=== PATIENT | male | born 1950 | race Two or more races ===

== ENCOUNTER 2020-07-08 19:24 | Inpatient (IN) | payer SELFPAY ==
[~2020-07-08] VITALS: Ht 175.3 cm; Wt 79.4 kg
--- NOTE | 2020-07-08 19:30 | NUR ---
RECIEVED VIA AMBULANCE WITH LOW GRADE TEMP C/O GENERALIZED WEEKNESS AND LOSS OF APPITITE FOR 10 DAYS. SPEAKS SERBIAN SON IN LAW AT BEDSIDE TO TRANSLATE. HEART MONITOR APPLIED NSR, WILL CONTINUE TO MONITOR.
[2020-07-08 20:36] LABS: PLATELET COUNT 175 x10^3mcL (130-400); RED CELL DISTRIBUTION WIDTH 12.7 % (11.5-14.5)
[2020-07-08 20:37] LABS: BASOPHIL % 0 % (0-2)
[2020-07-08 20:49] LABS: ALKALINE PHOSPHATASE 65 U/L (46-116); ALT/SGPT 38 U/L (16-63); AST/SGOT 40 U/L (15-37); BILIRUBIN TOTAL 0.5 mg/dL (0.20-1.00); CALCIUM 8.5 mg/dL (8.5-10.1); CARBON DIOXIDE 27.1 mmol/L (21-32); CHLORIDE SERUM 95 mmol/L (98-107); CREATININE SERUM 1.3 mg/dL (0.7-1.3); GLUCOSE SERUM 140 mg/dL (74-106); LACTIC DEHYDROGENASE (LDH) 286 U/L (100-190); SODIUM SERUM 132 mmol/L (136-145); TOTAL PROTEIN, SERUM 7.6 g/dL (6.4-8.2)
[2020-07-08 20:59] LABS: C REACTIVE PROTEIN 12.8 mg/dL (<=0.9); POTASSIUM SERUM 2.8 mmol/L (3.5-5.1)
[2020-07-08 21:09] LABS: UA SPECIFIC GRAVITY 1.025 (1.005-1.035); microscopic required? YES; urine erythrocyte TRACE (NEGATIVE)
--- NOTE | 2020-07-08 21:45 | NUR ---
NOTES CONTINUED BEFORE LEAVING ROOM.
--- NOTE | 2020-07-08 21:45 | NUR ---
PT WAS FOUND DOWN ON FLOOR ASFAMILY MEMBER STEPPED OUT OF ROOM TO RECIEVE CALL. THREE ASSISTED BACK TO BED FOUND ON BACK NO INJURY OR BRUISING SEEN AT THIS TIME. DENIES PAIN OR DISCOMFORT VITAL SIGNS STABLE . CHARGE NURSE HELPED ASSIST PATIENT TO BED. WILL CONTINUE TO MONITOR.CALL LIGHT WAS IN REACH BED WAS IN LOWER POSTION PT. WAS TOLD TO CALL FOR ASSISTANCE, FAMILY WAS AWARE TO NOTIFY NURSE BEFOR
--- NOTE | 2020-07-09 00:34 | NUR ---
PT AND FATHER PROVIDED WITH D/C INSTRUCTIONS WITH RX FOR ZOFRAN. PT AND FATHER GAVE UNDERSTANDING. NO ACUTE DISTRESS NOTED, PT A&OX4,BEHAVING APPROPRIATELY FOR AGE. AMBULATED OUT WITH STEADY GAIT WITH FATHER AT PT SIDE.
[2020-07-09] MEDS ORDERED: VIS50 PO (00:54)
[2020-07-09] MEDS ORDERED: ASPIRIN ADULT L81 M3 (00:55)
[2020-07-09] MEDS ORDERED: PLAVIX75 M1 PO (00:55)
[2020-07-09] MEDS ORDERED: ZOCOR10 MG (00:55)
[2020-07-09 01:11] LABS: MAGNESIUM 2.2 mg/dL (1.8-2.4); PHOSPHOROUS 3.5 mg/dL (2.5-4.9)
--- NOTE | 2020-07-09 01:12 | NUR ---
TRANSFERRED TO [id number] WITH COVID R/O AND PNUMONIA REPORT CALLED TO NATHEN WALTER TRANSPORTED WITH ALL BELONINGS
--- NOTE | 2020-07-09 01:30 | NUR ---
RECEIVED PT FROM ED NURSE. PT IS AAOX4, SPEAKS POLISH, DENIES HEADACHE/NAUSEA/DIZZINESS. PT IS TELE #23, NSR, DENIES CHEST PAIN. PULSES ARE EQUAL BILATERALLY, NO EDEMA NOTED. PT HAS BILATERALLY DIMINISHED BASES, ON 3L NC, DENIES SOB. PATIENT HAS CONGESTED COUGH. ABDOMEN IS SOFT AND ROUND, NO PAIN UPON PALPATION, NORMOACTIVE X4 QUADRANTS, LAST BM 07/06 STATED BY PATIENT. PT VOIDS FREELY, URINAL AT BEDSIDE. PATIENT REPORTS POOR APPETTITE, GENERALIZED WEAKNESS. SKIN IS DRY AND INTACT, NO LESIONS NOTED. PATIENT HAS IV TO LAC 18G AND RH 22G, SITES ARE INTACT, NO REDNESS OR SWELLING NOTED. PT IS CALM AND COOPERATIVE. ALL SAFETY MEASURES IN PLACE. BED IN LOWEST POSITION, CALL LIGHT WITHIN REACH. WILL CONTINUE TO MONITOR.
[2020-07-09 02:55] VITALS: BP 140/77
[2020-07-09 03:54] LABS: BASOPHIL % 0.6 % (0-2); PLATELET COUNT 189 x10^3mcL (130-400); RED CELL DISTRIBUTION WIDTH 12.3 % (11.5-14.5)
[2020-07-09 04:21] LABS: CALCIUM 8.6 mg/dL (8.5-10.1); CARBON DIOXIDE 28.1 mmol/L (21-32); CHLORIDE SERUM 95 mmol/L (98-107); CREATININE SERUM 1.2 mg/dL (0.7-1.3); GLUCOSE SERUM 110 mg/dL (74-106); POTASSIUM SERUM 3.2 mmol/L (3.5-5.1); SODIUM SERUM 135 mmol/L (136-145)
[2020-07-09 06:16] VITALS: BP 136/72
--- NOTE | 2020-07-09 07:02 | NUR ---
PATIENT RESTING INTERMITTENTLY WITH EYES CLOSED. NO ACUTE ISTRESS NOTED AT THIS TIME. PATIENT REMAINS ON 3L NC, DEMONSTRATES NO S/S OF SOB. AZITHROMAX RUNNING AT THIS TIME ON LAC 20G IV SITE. PHARMACY CONTACTED REGARDING NEED OF POTASSIUM AND LIDOCAINE MEDICATION. PER PHARMACY MEDICATION TIME WILL BE CHANGED TO 0800. PATIENT DEMONSTRATES CONGESTED/PRODUCTIVE COUGH. ALL SAFETY MEASURES IN PLACE. BED IN LOWEST POSITION, CALL LIGHT WITHIN REACH. WILL ENDORSE TO DAYSHIFT NURSE.
[2020-07-09 08:32] VITALS: BP 132/74
--- NOTE | 2020-07-09 09:10 | NUR ---
SEEN IN BED AAOX4. NO RESP DISTRESS OR SOB NOTED, ON O2 3LPM N/C, O2SAT 92%. NOTED WITH OCCATIONAL DRY COUGH. DIMINISHED LUNG SOUND TO BASES. GEN BODY WEAKNESS. ABLE TO FINISH MILK, HAD SOME CREAM OF WHEAT, REFUSED TO EAT THE REST. VOIDS NOTED YELLOW URINE ON URINAL AT BEDSIDE. K 3.2, K RIDER INFUSING WELL TO RIGHT HAND IV SITE. S/L TO LAC INTACT AND PATENT. CALL LIGHT PLACED WITHIN EASY REACH, SIDERAILS UP X2.
--- NOTE | 2020-07-09 11:29 | NUR ---
TM=136, REFUSED 3 UNITS REGULAR INSULIN SLIDING SCALE COVERAGE. PHYSICAL THERAPIST AT BEDSIDE. NO ANY DISTRESS NOTED. O2 DECREASED TO 2LPM N/C, O2SAT 92%-93%.
[2020-07-09 11:41] VITALS: BP 123/74
--- NOTE | 2020-07-09 13:53 | NUR ---
Discount pharmacy card and list to low cost medical clinics given to patient.
--- NOTE | 2020-07-09 15:21 | NUR ---
RESTING WITH EYES CLOSED. DOCTOR JIMENEZ MADE AWARE OF TODAY'S CHEST XRAY.
[2020-07-09 17:05] VITALS: BP 130/72
--- NOTE | 2020-07-09 18:51 | NUR ---
NO ANY DISTRESS THROUGHOUT SHIFT. DENIES PAIN. AFEBRILE AT THIS TIME. ALL SCHEDULED MEDS GIVEN. STATED VOIDS FREELY.
--- NOTE | 2020-07-09 21:00 | NUR ---
RECIEVED PATIENT FROM DAY SHIFT.PT RESTING IN BED. RR EVEN AND UNLABORED. PT ON 2L NC. BED IN SEMI FOWLERS POSITION. NSR TELE 23. NO S/SX ADN. BED LOCKED AND LOWERED. URINAL AT BEDSIDE. CALL LIGHT WITHIN REACH. WILL CONTINUE WITH PLAN OF CARE.
[2020-07-09 21:06] VITALS: BP 103/71
--- NOTE | 2020-07-09 23:01 | NUR ---
I HAVE REVIEWED THE DATA COLLECTION BY ORIENTEE (NAME): AREN MARIE ENTERED ON (DATE/TIME): 07/09/20 2585H I CONCUR WITH THE DATA AND ANY EXCEPTIONS OR COMMENTS ARE LISTED BELOW:
--- NOTE | 2020-07-10 01:15 | NUR ---
PT RESTING IN BED WATCHING TV. RR EVEN AND UNLABORED. ON 2L NC. O2 SAT 94%. NO S/SX OF ADN. BED LOCKED AND LOWERED. FALL PRECAUTIONS IN PLACE. CALL LIGHT WITHIN REACH. WILL CONTINUE TO MONITOR.
[2020-07-10 05:40] VITALS: BP 142/76
--- NOTE | 2020-07-10 06:39 | NUR ---
PT RESTING IN BED. A&O X4. RR EVEN AND UNLABORED. NO S/SX ADN. FALL PRECAUTIONS IN PLACE. BED LOCKED AND LOWERED. RH & LAC IV CDI AND PATENT. ALL NEEDS AND CONCERNS MET DURING SHIFT. CALL LIGHT WITHIN REACH. WILL ENDORSE TO DAY SHIFT NURSE.
[2020-07-10 06:58] LABS: BASOPHIL % 0.3 % (0-2); PLATELET COUNT 215 x10^3mcL (130-400); RED CELL DISTRIBUTION WIDTH 12.8 % (11.5-14.5)
[2020-07-10 07:21] LABS: CALCIUM 8.7 mg/dL (8.5-10.1); CARBON DIOXIDE 31.2 mmol/L (21-32); CHLORIDE SERUM 97 mmol/L (98-107); CREATININE SERUM 1.1 mg/dL (0.7-1.3); GLUCOSE SERUM 133 mg/dL (74-106); MAGNESIUM 2.2 mg/dL (1.8-2.4); PHOSPHOROUS 2.8 mg/dL (2.5-4.9); POTASSIUM SERUM 3.6 mmol/L (3.5-5.1); SODIUM SERUM 135 mmol/L (136-145)
--- NOTE | 2020-07-10 08:40 | NUR ---
SEEN SITTING UP IN BED ON HIGH PRATT POSITION HAVING BREAKFAST. AAOX3. NO RESP DISTRESS NOTED, ON 2LPM N/C O2SAT 93%. NOTED WITH OCCATIONAL DRY COUGH. DIMINISHED LUNG SOUND. POOR APPETITE, ABLE TO FINISH GLUCERNA AND SOME MUFFIN BREAD, REFUSED THE REST OF BREAKFAST. AM SCHEDULED MEDS GIVEN. S/L TO RT WRIST AND LAC INTACT/PATENT. NOTED YELLOW URINE ON URINAL AT BEDSIDE, EMPTIED 200ML URINE. PLAN OF CARE INFORMED. CALL LIGHT PLACED WITHIN EASY REACH, SIDERAIL S UP X2. ON DROPLET/CONTACT ISOLATION FOR PENDING PCR.
[2020-07-10 08:44] VITALS: BP 131/75
--- NOTE | 2020-07-10 09:00 | NUR ---
REFUSED FLU SHOT AND PNEUMOCOCCAL SHOT. PATIENT HAD FEVER THIS AM 102.2.
--- NOTE | 2020-07-10 10:00 | NUR ---
PATIENT CALLED STATED HE IS WET. NOTED INCONTINENCE URINE, PAULINA CARE PROVIDED, NEW LICHA APPLIED, NEW GOWN AND BED LINENS CHANGED. URINAL PROVIDED WITHIN EASY REACH, PATIENT STATED IT'S DIFFULTY TO USE IT. DENIES PAIN. CALL LIGHT PLACED WITHIN EASY REACH. SIDERAILS UP X2.
--- NOTE | 2020-07-10 10:30 | NUR ---
PATIENT IS POSITIVE FOR COVID-19(PCR). CLINICAL SAFETY MANAGER AND DOCTOR COLE MADE AWARE. REMAINS ON DROPLET/CONTACT ISOLATION.
--- NOTE | 2020-07-10 11:27 | NUR ---
DOCTOR FUENTES AND MEDICAL TEAM AT BEDSIDE FOR AM ROUND.
[2020-07-10 11:48] VITALS: BP 110/70
--- NOTE | 2020-07-10 13:00 | NUR ---
PATIENT CALLED STATED WANTED TO GO TO THE BATHROOM. ASSISTED TO BATHROOMM. HAD SOFT BM. ASSISTED TO SIT IN CHAIR. CALL LIGHT PLACED WITHIN EASY REACH AND INSTRUCTED PATIENT TO CALL WHEN READY TO GET BACKT TO BED.
--- NOTE | 2020-07-10 15:00 | NUR ---
ASSISTED BACK TO BED. NO ANY DISTRESS NOTED.
[2020-07-10 15:35] VITALS: BP 129/69
--- NOTE | 2020-07-10 15:40 | NUR ---
Initial Nutrition Assessment: 214B LUANA SANCHEZ 69M HR Nursing trigger: Poor PO > 3 days Dx: Fever, PUI, hypokalemia PMHx: Anxiety, DM, HTN PSHx: Cardiac stent placement Labs: (07/10) HCT 38L, Na 135L, Cl 97L, BG 133H, (07/09) 13.9H, (07/08) A1C 7.9H, Ferritin 628.1H, AST 40H, Albumin 3L Meds: Zithromax, Plavix, Lipitor, Aspirin, Zosyn, Tylenol Diet: CCHO diet PO intake since admission: (07/09) B: 20%, D: 50% Ht: 175.26cm/69in Wt: 79.379kg/175lbs BMI: 25.8 Bed scale: not accessible IBW: 72.73kg/160lbs %IBW: 109.15% UBW: unknown Age: 69 Food Allergies: unknown Edema: none noted Last BM: 07/06 Skin: skin intact Mynor: 19 Per H and P (07/08), This is a 69 yo male with a PMHx of anxiety, DM HTN, CAD with stent placement who was BIBA to ED for generalized weakness. Patient speaks Kiswahili so most of the history was given by son. Since Jun 26-, patient has had body aches, chills, dry cough. Patient has also not been eating or drinking well for about a week. However, today at around 7 pm, patient was so weak that he was unable to move. The son states that patient seemed lethargic and complained of dizziness. Patient's son also states that he was the first person to show "COVID like symptoms," and that the rest of the household began to exhibit some COVID like symptoms and just got tested today. He has also not received his flu shot. Otherwise, patient denies any known sick contacts, diarrhea, nausea, vomiting, chest pain, sore throat. Endorses Headaches, dry cough, body aches and chills Pt was admitted with dx: general weakness, hypokalemia, hypochloremia, vasomotornephropathy, h/o DM, DVT RD Note (07/10/2020) A swallow evaluation was ordered d/t possible aspiration PNA. Pt was in isolation d/t COVID PUI. RN reported poor appetite, and pt had 20-50% intake on 07/09. Contacted pt's son-in-law and asked about pt. Per pt's son-in-law, pt did not follow any food restrictions at home and he ate everything normally with no chewing/swallowing difficulty. A week before admission, pt's appetite started to decline. Suggested encouraging pt to increase PO intake to family member, and family member acknowledged. Per RN, pt did not have breakfast today, but pt appeared to like glucerna. No GI distress was observed today. Problem with: N/V/D/C: none per RN Problems with: Chewing: Swallowing: none per RN and pt's son-in-law Current appetite: poor per RN Recent wt change: unknown %wt change: unknown Vitamin/Supplement use: unknown Special diet at home: regular diet Physical activity: unknown Nutrition education given (specify specific nutrition education and handout given): not given at this time d/t pt was Kiswahili Speaking. Food-drug interactions? Education given? n/a Estimated Nutritional Needs Based on ideal body weight (73kg) Energy: 7670-7963 kcal/day (25-30 kcal/kg for geriatric maintenance) Protein: 73-87 g/day (1-1.2 g/kg for geriatric maintenance) Fluid: 5050-5448 mL/day (1 mL/kcal) Nutrition Diagnosis: 1. Inadequate energy and protein intake r/t decreased appetite a/e/b pt's family member reported appetite declining and low PO intake since admission. 2. Altered Nutrition related labs r/t endocrine dysfunction a/e/b pt elevated BG 133on 07/10, and A1C 7.9 on 07/08. Intervention 1. Continue CCHO diet as tolerate 2. Recommend Glucerna TID to provide additional 660kcal and 30g protein. Monitor/Evaluate Goal: PO intake at least 75% of estimated needs Monitor: PO intake, Labs, GI function, ONS intake, Body weight F/U in 2-3 days as high risk 07/12-
--- NOTE | 2020-07-10 15:40 | NUR ---
1. Continue CCHO diet as tolerate 2. Recommend Glucerna TID to provide additional 660kcal and 30g protein.
--- NOTE | 2020-07-10 16:19 | NUR ---
RECEIVED A CALL FROM PATIENT'S SON IN LAW [facility] STATED THAT DOCTOR CALLED HIM AND INFORMED ABOUT CONVALESCENT PLASMA TRANSFUSION. CONSENT FOR BLOOD TRANSFUSION OBTAINED VIA PHONE VERIFIED BY JOSE ANGEL BALDWIN.
--- NOTE | 2020-07-10 16:30 | NUR ---
STATED IV SITE TO RIGHT WRIST HURTING, NO SWELLING OR ERYTHEMA TO SITE, IV CATHETER REMOVED, DRSG APPLIED. NEW IV CATHETER#22 INSERTED TO LFA WITH GOOD BLD RETURNED AND FLUSHED WELL. IVPB REMESIVIR STARTED, NO ADVERSE REACTION NOTED. DENIES PAIN.
--- NOTE | 2020-07-10 18:21 | NUR ---
SITTING UP IN BED HAVING DINNER. NO ASPIRATION NOTED. REMAINS ON O2 2LPM N/C, O2SAT 92%-95%. DENIES PAIN. VOIDS, HAD BM X1 TODAY. S/L TO LAC AND LFA INTACT AND PATENT.
--- NOTE | 2020-07-10 19:35 | NUR ---
RECIEVED PT DAY SHIFT NURSE. PT RESTING IN BED. RR EVEN AND UNLABORED. ON 2L NC. NO S/SX ADN. NSR ON TELE #23. DENIES ANY CHEST PAIN. FALL PRECAUTIONS IN PLACE. CALL LIGHT WITHIN REACH. WILL CONTINUE WITH PLAN OF CARE.
[2020-07-10 20:37] VITALS: BP 133/69
--- NOTE | 2020-07-10 23:20 | NUR ---
20G IV TO LEFT AC APPEARS TO BE INFILTRATED. INFUSION STOPPED. SLIGH SWELLING NOTED TO LEFT AC AREA. IV REMOVED, INTACT. FLUSHED IV TO LEFT FOREARM, FLUSHED WELL. TRANSFERRED INFUSION TO LEFT FOREARM IV. VITAL SIGNS TAKEN, TEMP 98.8F, BP 135/72, CO 76, RR 20, O2 SAT 96%.
--- NOTE | 2020-07-10 23:21 | NUR ---
STARTED PT ON FFP 1 UNIT. NO S/SX OF OF ACUTE REACTION NOTED. VS WNL. WILL CONTINUE TO MONITOR.
--- NOTE | 2020-07-10 23:49 | NUR ---
PT IV INFILTRATED DURING ADMINISTRATION OF FFP. MOVED TO PATENT IV SITE AND CONTIUE ADMINISTRATION. NOTIFIED DR ANDINO @ 4214. SHE ADVISED TO CONTINUE WITH INFUSION.
--- NOTE | 2020-07-11 04:13 | NUR ---
I HAVE REVIEWED THE DATA COLLECTION BY ORIENTEE (NAME): AREN MARIE ENTERED ON (DATE/TIME):2340H 07/10/20 I CONCUR WITH THE DATA AND ANY EXCEPTIONS OR COMMENTS ARE LISTED BELOW:
[2020-07-11 06:07] VITALS: BP 126/47; BP 136/75
[2020-07-11 06:50] LABS: BASOPHIL % 0.2 % (0-2); PLATELET COUNT 222 x10^3mcL (130-400); RED CELL DISTRIBUTION WIDTH 12.7 % (11.5-14.5)
[2020-07-11 07:13] LABS: CARBON DIOXIDE 30.6 mmol/L (21-32); CHLORIDE SERUM 99 mmol/L (98-107); CREATININE SERUM 1.1 mg/dL (0.7-1.3); GLUCOSE SERUM 88 mg/dL (74-106); MAGNESIUM 2.3 mg/dL (1.8-2.4); PHOSPHOROUS 3.7 mg/dL (2.5-4.9); POTASSIUM SERUM 3.3 mmol/L (3.5-5.1); SODIUM SERUM 137 mmol/L (136-145)
--- NOTE | 2020-07-11 07:21 | NUR ---
PT SLEEPING IN BED. RR EVEN AND UNLABORED. NO S/SX OF ADN. BED LOCKED AND LOWERED. CALL LIGHT WITHIN REACH. WILL ENDORSE TO DAY SHIFT NURSE.
[2020-07-11 07:28] LABS: BILIRUBIN DIRECT 0.27 mg/dL (0.0-0.2); BILIRUBIN TOTAL 0.59 mg/dL (0.20-1.00); TOTAL PROTEIN, SERUM 7.2 g/dL (6.4-8.2)
[2020-07-11 07:29] LABS: ALBUMIN 2.8 g/dL (3.4-5.0)
[2020-07-11 08:05] VITALS: BP 127/71
--- NOTE | 2020-07-11 08:31 | NUR ---
AT 0805 - RECEIVED PATIENT FROM NIGHT NURSE. AWAKE, ALERT AND APPEARS ORIENTED. SITTING UP IN BED EATING BREAKFAST. VSS. CURRENTLY AFEBRILE. O2 SAT 98% ON 2L VIA NC. DRY COUGH. MONITOR SHOWING SINUS RHYTHM; RATE 60'S. ON DROPLET ISOLATION FOR COVID-19.
[2020-07-11 09:37] VITALS: BP 122/68
--- NOTE | 2020-07-11 12:23 | NUR ---
RETURNED CALL TO PATIENT'S SON-IN-LAW, LORENZO. UPDATED ON PATIENT CONDITION AND CURRENT PLAN OF CARE. PATIENT RESTING QUIETLY. GIVEN 6 UNITS REGULAR INSULIN PER SLIDING SCALE FOR BLOOD GLUCOSE LEVEL OF 211.
[2020-07-11 12:32] VITALS: BP 124/71
--- NOTE | 2020-07-11 13:10 | NUR ---
PT WAS SEEN FOR DYSPHAGIA. PT WAS ABLE TO SAFELY SWALLOW REGULAR DIET WITH THIN LIQUID. RECOMMENDATION REGULAR DIET WITH THIN LQUID.
--- NOTE | 2020-07-11 16:30 | NUR ---
RECEIVED CALL FROM PATIENT'S SON-IN-LAW, LORENZO. UPDATED ON PATIENT CONDITION.
[2020-07-11 17:32] VITALS: BP 121/68
--- NOTE | 2020-07-11 19:30 | NUR ---
PATIENT SLEPT THIS AFTERNOON. NOW AWAKE, ALERT. TOLERATING DIET PO. IMPROVED APPETITE THIS PM. VSS AFEBRILE. TRECEIVED TODAY'S DOSE OF REMDESEVIR. CARE ENDORSED TO NIGHT NURSE.
--- NOTE | 2020-07-11 19:35 | NUR ---
RECEIVED PT FROM AM NURSE AT THIS TIME. AA/O x 4, [place] AND [place] SPEAKING. TELE MONITOR #23, SR, HR 65 BPM. DENIES CHEST PAIN/ CHEST DISCOMFORT. PULSES PALPABLE, NO EDEMA, LUNG SOUNDS DIMINISHED, ON O2 2 LPM VIA NC. DENIES COUGH AT THIS TIME. ACTIVE BS X 4 QUADS, ABD SOFT AND NON TENDER. DENIES N/V/D. VOIDS, GENERALIZED WEAKNESS, PT DONE THIS AM PER AM NURSE. SKIN INTACT, DENIES PAIN. IV TO LFA INTACT, NO ERYTHEMA/ NO INFILTRATION. IV REMDESEVIR STILL RUNNING AT THIS TIME. WILL SL WHEN COMPLETED. IV INFUSING WELL. NO ACUTE DISTRESS AT THIS TIME. CALL BUTTON WITHIN REACH, WILL CONTINUE TO MONITOR.
[2020-07-11 21:41] VITALS: BP 103/73
--- NOTE | 2020-07-12 01:25 | NUR ---
PT IN BED RESTING WITH EYES CLOSED, BUT EASILY AROUSABLE. RESPIRATIONS E/U ON O2 AT 2 LPM VIA NC. RISE AND FALL OF CHEST OBSERVED. NO SIGNS OF PAIN. NO ACUTE DISTRESS AT THIS TIME. CALL BUTTON WITHIN REACH, WILL CONTINUE TO MONITOR.
[2020-07-12 05:56] VITALS: BP 121/65
--- NOTE | 2020-07-12 06:39 | NUR ---
PT SLEPT IN INTERVALS THROUGHOUT THE NIGHT, BUT EASILY AROUSABLE. RESPIRATIONS E/U ON 2 LPM OF O2 VIA NC. DENIES SOB/ DENIES PAIN. BLOOD SUGAR 272, INSULIN COVERAGE GIVEN PER SLIDING SCALE. NO ACUTE CHANGES OVER NIGHT. CALL BUTTON WITHIN REACH, WILL ENDORSE CARE TO AM SHIFT.
[2020-07-12 07:21] LABS: BASOPHIL % 0.1 % (0-2); PLATELET COUNT 242 x10^3mcL (130-400); RED CELL DISTRIBUTION WIDTH 12.6 % (11.5-14.5)
--- NOTE | 2020-07-12 07:24 | NUR ---
RECEIVED PATIENT FROM NIGHT NURSE. MONITOR SHOWING SINUS BRADYCARDIA; RATE 56. O2 SAT 95% ON 2L VIA NC.
[2020-07-12 08:28] VITALS: BP 121/65
[2020-07-12 08:36] LABS: BILIRUBIN DIRECT 0.2 mg/dL (0.0-0.2); BILIRUBIN TOTAL 0.4 mg/dL (0.20-1.00); TOTAL PROTEIN, SERUM 7.8 g/dL (6.4-8.2)
[2020-07-12 08:38] LABS: CALCIUM 9.4 mg/dL (8.5-10.1); CARBON DIOXIDE 28.9 mmol/L (21-32); CHLORIDE SERUM 102 mmol/L (98-107); CREATININE SERUM 1.1 mg/dL (0.7-1.3); GLUCOSE SERUM 277 mg/dL (74-106); MAGNESIUM 2.7 mg/dL (1.8-2.4); POTASSIUM SERUM 3.9 mmol/L (3.5-5.1); SODIUM SERUM 140 mmol/L (136-145)
[2020-07-12 08:44] LABS: ALBUMIN 2.6 g/dL (3.4-5.0)
--- NOTE | 2020-07-12 09:47 | NUR ---
AT 0835 - PATIENT IS AWAKE, ALERT AND ORIENTED. SITTING UP IN BED EATING BREAKFAST. SPEAKING WITH FAMILY ON HIS CELL PHONE.
--- NOTE | 2020-07-12 11:30 | NUR ---
MAKING ROUNDS THIS MORNING AND TOLD PATIENT'S AIC RESULTS 7.9 AND ONLY ON SS INSULIN.PRINTED AND SHOWED THE PAST 3 DAYS OF HIS FINGER STICK GLUCOSE TEST RESULTS FROM 07/09/2020 TO 07/11/2020.
[2020-07-12 11:58] VITALS: BP 121/61
--- NOTE | 2020-07-12 13:12 | NUR ---
AT 1230 - PATIENT AMBULATED AROUND ROOM USING WALKER. PATIENT HAS GOOD ACTIVITY TOLERANCE BUT NEEDS ASSISTANCE WELL WALKER; APPEARS WEAK AND UNSTEADY. NOW SITTING IN CHAIR FOR LUNCH.
--- NOTE | 2020-07-12 13:56 | NUR ---
PATIENT SAID HE WANTS TO REMAIN SITTING IN CHAIR. INSTRUCTED TO CALL FOR NURSE AND NOT TO ATTEMPT GETTING OUT OF CHAIR ALONE. CALL LIGHT WITHIN REACH.
--- NOTE | 2020-07-12 14:29 | NUR ---
Follow up Nutrition Assessment: 214B LUANA SANCHEZ 69M HR Dx: Fever, PUI, hypokalemia PMHx: Anxiety, DM, HTN PSHx: Cardiac stent placement Labs: Glucose: 277H, BUN: 28H, A1C: 7.9H (07/08), H/H: 12/35L Meds: Zithromax, Plavix, Lipitor, Aspirin, Zosyn, Tylenol, cepacol lozenge PRN, colace BID/PRN, Humulin PRN, Lipitor, norco PRN Diet: CCHO diet PO intake since admission: 50% x 5 meals -PO intake seems to be improving Wt: 79.379kg/175lbs BMI: 25.8 Edema: none Last BM: 07/10/20 Skin: skin intact Mynor: 20 Per H and P (07/08), This is a 69 yo male with a PMHx of anxiety, DM HTN, CAD with stent placement who was BIBA to ED for generalized weakness. Patient speaks Irish so most of the history was given by son. Since Jun 26-, patient has had body aches, chills, dry cough. Patient has also not been eating or drinking well for about a week. However, today at around 7 pm, patient was so weak that he was unable to move. The son states that patient seemed lethargic and complained of dizziness. Patient's son also states that he was the first person to show "COVID like symptoms," and that the rest of the household began to exhibit some COVID like symptoms and just got tested today. He has also not received his flu shot. Otherwise, patient denies any known sick contacts, diarrhea, nausea, vomiting, chest pain, sore throat. Endorses Headaches, dry cough, body aches and chills Pt was admitted with dx: general weakness, hypokalemia, hypochloremia, vasomotornephropathy, h/o DM, DVT RD Note (07/10/2020) A swallow evaluation was ordered d/t possible aspiration PNA. Pt was in isolation d/t COVID PUI. RN reported poor appetite, and pt had 20-50% intake on 07/09. Contacted pt's son-in-law and asked about pt. Per pt's son-in-law, pt did not follow any food restrictions at home and he ate everything normally with no chewing/swallowing difficulty. A week before admission, pt's appetite started to decline. Suggested encouraging pt to increase PO intake to family member, and family member acknowledged. Per RN, pt did not have breakfast today, but pt appeared to like glucerna. No GI distress was observed today. RD note (07-12-2020): Per MD progress note, COVID-19 PCR came back positive. Pt had a fever this morning of 101.1 around midnight. Pt was started on remdisivir, pt received plasma. Pt on 2L cannula oxygen. Per pt's nurse, pt is eating well only if he receives salt and pepper on his food. Observed pt sitting in a chair eating lunch independently at time of visit. Pt is also eating snacks that his family brings for him. Do not recommend for pt to be on cardiac diet due to pt eating well, wants salt on food to eat, pt's age (69 years) and pt had poor PO intake at admission. Estimated Nutritional Needs Based on ideal body weight (73kg), *modified Energy: 2190- 2555 kcal/day (30-35 kcal/kg for infection) Protein: 73-95 g/day (1-1.3 g/kg for infection) Fluid: 2190- 2555 mL/day (1 mL/kcal) Nutrition Diagnosis: 1. Inadequate energy and protein intake r/t decreased appetite a/e/b pt's family member reported appetite declining and low PO intake since admission. (ongoing) 2. Altered Nutrition related labs r/t endocrine dysfunction a/e/b pt has elevated BG and A1C 7.9 on 07/08 (ongoing) 3. Increased nutrient needs (protein, energy) related to infection, fever as evidenced by + COVID-19 PCR test, + fever Intervention 1. Continue CCHO diet as tolerated 2. Continue Glucerna TID to provide additional 660kcal and 30g protein. Monitor/Evaluate Goal: PO intake at least 75% of estimated needs (met, ongoing) Monitor: PO intake, Labs, GI function, ONS intake, Body weight F/U in 3-5 days as moderate risk 07/15-
--- NOTE | 2020-07-12 14:30 | NUR ---
Intervention 1. Continue CCHO diet as tolerated 2. Continue Glucerna TID to provide additional 660kcal and 30g protein.
--- NOTE | 2020-07-12 16:20 | NUR ---
BLOOD GLUCOSE 494. REPEAT 442. DR JEFFERY NOTIFIED. GIVE INSULIN PER SLIDING SCALE NOW AND DR WILL ORDER LONG-ACTING INSULIN FOR TONIGHT.
[2020-07-12 16:25] VITALS: BP 113/57
--- NOTE | 2020-07-12 18:39 | NUR ---
AWAKE, ALERT AND ORIETNED. HAS RECEIVED TODAY'S DOSE OF REMDESEVIR. PATIENT STIL SITTING IN CHAIR BY CHOICE. RESPIRATIONS REGULAR. WILL ENDORSE CARE TO NIGHT NURSE.
--- NOTE | 2020-07-12 19:35 | NUR ---
RECEIVED PT FROM AM NURSE, PT IS AA/O X 4, ABLE TO MAKE NEEDS KNOWN, DENIES HEADACHE/ DENIES DIZZINESS. TELE MONITOR #23 NSR. DENIES CHEST PAIN/ CHEST PRESSURE. PULSES PALPABLE NO EDEMA. RESPIRATIONS E/U ON 2 LPM OF O2 VIA NC, DENIES SOB. SPO2 94%. VOIDS USING URINAL, GENERALIZED BODY PAIN, SKIN INTACT, DENIES PAIN. IV TO LFA INTACT, SL, FLUSHING WELL. NO ERYTHEMA, NO INFILTRATION. DROPLET PRECAUTIONS IN PLACE FOR POSITIVE COVID PCR. ALL NEEDS MET. CALL BUTTON WITHIN REACH, WILL CONTINUE TO MONITOR.
[2020-07-12 21:08] VITALS: BP 122/59
--- NOTE | 2020-07-13 00:29 | NUR ---
PT IN BED RESTING WITH EYES CLOSED, BUT EASILY AROUSABLE. RESPIRATIONS E/U ON 2 LPM OF O2 VIA NC. TELE MONITOR SHOWING SINUS ARAM, 48-64 BPM. DENIES CHEST PAIN. NO ACUTE DISTRESS AT THIS TIME. FALL PRECAUTIONS IN PLACE. CALL BUTTON WITHIN REACH, WILL CONTINUE TO MONITOR.
[2020-07-13 05:39] VITALS: BP 147/73
--- NOTE | 2020-07-13 07:06 | NUR ---
PT SLEPT IN INTERVALS THROUGHOUT THE NIGHT BUT EASILY AROUSABLE. NO ACUTE CHANGES DURING THE NIGHT. BLOOD SUGAR 331, INSULIN COVERAGE GIVEN PER SLIDING SCALE. CARE WILL BE ENDORSED TO AM NURSE.
--- NOTE | 2020-07-13 07:20 | NUR ---
REC'VD PT FROM NIGHT RN. PT RESTING IN BED WITH EYES CLOSED. RES E/U, NO RESPIRATORY DISTRESS NOTED. TELE MONITOR 23 SHOWING SB AND O2 SATURATING 97% ON 2 L NC.
[2020-07-13 07:23] LABS: BILIRUBIN DIRECT 0.15 mg/dL (0.0-0.2); BILIRUBIN TOTAL 0.3 mg/dL (0.20-1.00); TOTAL PROTEIN, SERUM 7.2 g/dL (6.4-8.2)
[2020-07-13 07:24] LABS: ALBUMIN 2.5 g/dL (3.4-5.0)
[2020-07-13 09:19] VITALS: BP 140/70
[2020-07-13 10:29] LABS: CALCIUM 9.7 mg/dL (8.5-10.1); CARBON DIOXIDE 29.5 mmol/L (21-32); CHLORIDE SERUM 101 mmol/L (98-107); CREATININE SERUM 1.3 mg/dL (0.7-1.3); GLUCOSE SERUM 345 mg/dL (74-106); POTASSIUM SERUM 4.5 mmol/L (3.5-5.1); SODIUM SERUM 137 mmol/L (136-145)
[2020-07-13 10:31] LABS: BASOPHIL % 0.3 % (0-2); PLATELET COUNT 271 x10^3mcL (130-400); RED CELL DISTRIBUTION WIDTH 12.4 % (11.5-14.5)
--- NOTE | 2020-07-13 12:24 | NUR ---
PT AMBULATED WITH WALKER A FEW TIMES AROUND ROOM. TOLERATED WELL. ASSISTED PT TO SIT ON CHAIR REQUESTED FROM PT.
[2020-07-13 13:02] VITALS: BP 124/55
--- NOTE | 2020-07-13 15:26 | NUR ---
INTELLECTUAL PROPERTY PARALEGAL REQUESTED PT BACK IN BED PT'S REQUEST. O2 SATURATION REMAINED 95%
[2020-07-13 15:55] VITALS: BP 119/62
--- NOTE | 2020-07-13 19:30 | NUR ---
RECEIVED PT FROM AM NURSE, PT AWAKE IN BED WATCHING TELEVISION. AA/O X 4, ABLE TO MAKE NEEDS KNOWN. DENIES DIZZINESS/ DENIES HEADACHE. TELE #23 NSR, HR 63 BPM, DENIES CHEST PAIN/ CHEST PRESSURE. RES E/U ON 2 LPM OF O2 VIA NC, SPO2 92%, DENIES SOB. ACTIVE BS X 4 QUADS, ABD SOFT AND NON TENDER, DENIES N/V/D. VOIDS USING URINAL. SKIN INTACT, IV TO LFA INTACT, SL, FLUSHING WELL, NO ERYTHEMA/ NO INFILTRATION. DENIES PAIN. DROPLET PRECUATIONS IN PLACE FOR POSITIVE COVID [address]TON IN PL[address], WILL CONTINUE TO MONITOR.
[2020-07-13 20:20] VITALS: BP 132/69
--- NOTE | 2020-07-14 00:15 | NUR ---
PT IN BED RESTING WITH EYES CLOSED, BUT EASILY AROUSABLE. RES E/U ON 2 LPM OF O2, SPO2 94-99%, HR SB. RISE AND FALL OF CHEST OBSERVED. NO SIGNS OF ACUTE PAIN. CALL BUTTON WITHIN REACH, WILL CONTINUE TO MONITOR.
--- NOTE | 2020-07-14 04:51 | NUR ---
INFORMED RESIDENT DR. CARMONA THAT PT IS NEED OF SPEAKING WITH AXMINSTER RUG SETTER. PT STATED HE IS VISITING AND DOES NOT HAVE INSURANCE. PT NEEDS ASSISTANCE IN APPLYING FOR MEDI-SUMA BEFORE HE IS DISCHARGED. PT'S SON IN LAW LORENZO CAN BE CALLED FOR ASSISTANCE IN TRANSLATION AT PHONE NUMBER [phone]. PT SPEAKS GERMAN BUT PRIMARY LANGUAGE IS GREEK AND REQUESTING THAT BOAT OPERATOR SPEAK WITH SON IN LAW. DR. CARMONA STATED HE WOULD PUT IN AN ORDER FOR AXMINSTER RUG SETTER.
[2020-07-14 05:44] VITALS: BP 131/68
--- NOTE | 2020-07-14 05:52 | NUR ---
PT COMPLAINED OF COUGH, PRN CEPACOL COUGH DROP GIVEN.
--- NOTE | 2020-07-14 06:37 | NUR ---
PT SLEPT WELL DURING THE NIGHT, BUT EASILY AROUSABLE. RES E/U ON 2 LPM OF 02, NO RESPIRATORY DISTRESS. DENIES PAIN. BS 199, INSULIN COVERAGE GIVEN PER ORDER. NO ACUTE CHANGES OVERNIGHT. CALL BUTTON WITHIN REACH, WILL ENDORSE CARE TO AM NURSE.
[2020-07-14 07:21] LABS: BILIRUBIN DIRECT 0.17 mg/dL (0.0-0.2); BILIRUBIN TOTAL 0.3 mg/dL (0.20-1.00); TOTAL PROTEIN, SERUM 6.6 g/dL (6.4-8.2)
[2020-07-14 07:23] LABS: ALBUMIN 2.4 g/dL (3.4-5.0)
[2020-07-14 08:13] VITALS: BP 117/60
--- NOTE | 2020-07-14 09:58 | NUR ---
PATIENT IS A 69 YEAR OLD MALE ADMITTED TO [facility] FOR WEAKNESS AND COUGH PROMPTING COVID TEST (+) ON 07/08. PATIENT IS ALERT AND ORIENTED X4 BULGARIAN AND ALBANIAN SPEAKING. HE HAS DIMINISHED LOWER LOBES ON 2LNC. HE HAS GENERLIZED WEAKNESS BUT AMBULATES WITH WALKER. IV IS INTACT AND PATENT ON LFA. LAST DOSE OF REMDESEVIR [facility] FOR TONIGHT. PER PATIENT REQUESTING SS TO TALK TO HIM AND SON LORENZO ABOUT MEDICARE. CALLED THEM AND LEFT THEM A MESSAGE, PENDING THERE ARRIVAL TO TALK TO THEM.
[2020-07-14 10:05] LABS: CALCIUM 9.1 mg/dL (8.5-10.1); CARBON DIOXIDE 26.7 mmol/L (21-32); CHLORIDE SERUM 107 mmol/L (98-107); CREATININE SERUM 1.1 mg/dL (0.7-1.3); GLUCOSE SERUM 185 mg/dL (74-106); MAGNESIUM 2.2 mg/dL (1.8-2.4); PHOSPHOROUS 4.1 mg/dL (2.5-4.9); POTASSIUM SERUM 3.9 mmol/L (3.5-5.1); SODIUM SERUM 143 mmol/L (136-145)
--- NOTE | 2020-07-14 10:32 | NUR ---
PATIENT REMDESIVIR NOT TRANFUSED YEST DAY SHIFT. INCIDENT REPORT DONE, CHARGE NURSE AND LARICE AWARE. PHARMACIST AWARE. WILL MAKE A ADDITIONAL BAG FOR TOMORROW TO GET ACCURATE AMOUNT OF DOSES.
[2020-07-14 11:08] LABS: PLATELET COUNT 285 x10^3mcL (130-400); RED CELL DISTRIBUTION WIDTH 12.4 % (11.5-14.5)
[2020-07-14 11:13] LABS: BASOPHIL % 0 % (0-2)
[2020-07-14 12:13] VITALS: BP 124/61
[2020-07-14 16:23] VITALS: BP 143/80
--- NOTE | 2020-07-14 20:20 | NUR ---
REC'D PT FORM DAY NURSE. PT RESTING IN BED. UZBEK SPEAKING. FOLLOWS COMMANDS. SPEECH CLEAR. TELE 23. DENIES CP, DIZZINESS, OR PALPITATIONS. BREATHING EVEN/UNLABORED ON 2L NC, SPO2 95%. NO EDEMA NOTED. ABD SOFT/ROUND. DENIES ABD PAIN, TENDERNESS, OR N/V. VOIDING FREELY USING URINAL. GEN WEAKNESS. WALKER AT BEDSIDE. IV TO LFA FLUSHED AND PATENT, SITE WNL. CALL LIGHT WITHIN REACH, BED AT LOWEST POSITION. WILL CONTINUE TO MONITOR.
[2020-07-14 22:25] VITALS: BP 116/53
--- NOTE | 2020-07-14 23:58 | NUR ---
PT AWAKE AND RESTING IN BED. BREATHING EVEN/UNLABORED ON 2L NC. NO SIGNS OF DISTRESS OR PAIN NOTED. SPO2 94%. HR 45. DENIES DIZZINESS. REPORTS HE IS UNABLE TO SLEEP. LIGHT TURNED OFF. CALL LIGHT WITHIN REACH, BED AT LOWEST POSITION. WILL CONTINUE TO MONITOR.
--- NOTE | 2020-07-15 03:09 | NUR ---
DR. ANDINO MADE AWARE HR IN THE 40'S WHILE ASLEEP. NO CHANGES IN ORDERS.
--- NOTE | 2020-07-15 06:12 | NUR ---
PT RESTING IN BED WITH EYES CLOSED. BLANKETS OVER HIS HEAD. NO COMPLAINTS AT THIS TIME. SPO2 97% ON 2L. PT STATES HE "WANTS TO SLEEP." NO SIGNIFICANT CHANGES DURING SHIFT. CALL LIGHT WITHIN REACH, BED AT LOWEST POSITION. WILL ENDORSE TO DAY NURSE.
[2020-07-15 06:50] VITALS: BP 140/58
[2020-07-15 07:12] LABS: BASOPHIL % 0.4 % (0-2); PLATELET COUNT 299 x10^3mcL (130-400); RED CELL DISTRIBUTION WIDTH 12.8 % (11.5-14.5)
--- NOTE | 2020-07-15 07:27 | NUR ---
RECEIVED PT FROM PM SHIFT. PT IS AWAKE AND RESTING COMFORTABLY AT THIS TIME. NO FACIAL DISTRESS OR SOB NOTED. PT IS A/OX4. ABLE TO MAKE NEEDS KNOWN. DENIES ARAGON/DIZZINESS. LUNG SOUNDS DIMINISHED. BREATHING E/U ON 2L NC. TELE #23. DENIES CP/PRESSURE. NSR. PULSES EVEN AND PALPABLE. NO EDEMA NOTED. ACTIVE BSX4. ABD SOFT AND ROUND. DENIES N/V/D. VOIDS FREELY. URINAL BY BEDSIDE. FWW BASELINE. SKIN INTACT. NO C/O PAIN AT THIS TIME. IV 22G TO LFA. SL. FLUSHES WITH NO DIFFICULTY. BED AT LOWEST POSITION. CALL BUTTON WITHIN REACH. WILL CONTINUE TO MONITOR.
[2020-07-15 07:30] LABS: ALKALINE PHOSPHATASE 68 U/L (46-116); ALT/SGPT 60 U/L (16-63); AST/SGOT 34 U/L (15-37); BILIRUBIN DIRECT 0.15 mg/dL (0.0-0.2); BILIRUBIN TOTAL 0.3 mg/dL (0.20-1.00); CALCIUM 8.7 mg/dL (8.5-10.1); CHLORIDE SERUM 105 mmol/L (98-107); GLUCOSE SERUM 166 mg/dL (74-106); PHOSPHOROUS 4.6 mg/dL (2.5-4.9); POTASSIUM SERUM 3.8 mmol/L (3.5-5.1); SODIUM SERUM 143 mmol/L (136-145); TOTAL PROTEIN, SERUM 6.4 g/dL (6.4-8.2)
[2020-07-15 07:31] LABS: ALBUMIN 2.3 g/dL (3.4-5.0)
[2020-07-15 08:37] VITALS: BP 118/58
--- NOTE | 2020-07-15 12:12 | NUR ---
DR FUENTES HERE TO SEE PATIENT, WEANED PT OFF TO RA. PT TOLERATED WELL AND IS SATURATING AT 96%. WILL CONTINUE TO MONITOR.
[2020-07-15 13:14] VITALS: BP 122/66
[2020-07-15] MEDS ORDERED: DECADRON6 MG PO (14:50)
[2020-07-15 16:04] VITALS: BP 125/45
[2020-07-15] MEDS ORDERED: METFORMIN HCL500 M4 PO (16:11)
[2020-07-15 16:59] VITALS: BP 125/45
--- NOTE | 2020-07-15 17:48 | NUR ---
DISCHARGE INFORMATION DISCUSSED WITH SON IN LAW LORENZO. LORENZO VERBALIZED UNDERSTANDING AND SAID HE WILL COME PICK PT UP BEFORE THE DAY'S END. PT GIVEN THE DISCHARGE PACKET. REINFORCED TO PT TO TAKE IT WITH HIM UPON DISCHARGE. WILL ENDORSE TO PM SHIFT.
--- NOTE | 2020-07-15 18:48 | NUR ---
NO ACUTE DISTRESS NOTED DURING SHIFT. WILL ENDORSE CARE TO PM SHIFT FOR CONTINUITY OF CARE.
--- NOTE | 2020-07-15 20:00 | NUR ---
PATIENT IS A/O X4. BREATHING E/U. NO DISTRESS NOTED. WAS FOUND TRYING TO PUT HIS CLOTHES ON. ASSISTED TO HELP WITH PUTTING HIS CLOTHING ON. SON LORENZO WAS OUTSIDE WAITING FOR HIM. ALL BELONGINGS GATHERED. 3 BAGS OF BELONGINGS TAKEN WITH PATIENT. TELEMONITOR AND IV REMOVED. ID BAND REMOVED. DC PACKET WITH PATIENT AND SHOWN TO SON. DISCUSSED F/U APPT AND MEDS TO BE PICKED UP AT PHARMACY. PATIENT ALSO HAD HOME O2 AND SHOWED SON HOW TO TURN ON O2. PATIENT SAFELY AMBULATED TO CAR WITH ASSIST. O2 WAS ALSO APPLIED AT 2L NC. PATIENT WAS IN STABLE CONDITION.
== END 2020-07-15 19:41 | disposition home health service (06) | DRG 177 ==
LOC: ED 19:24 → DU 23:04
PROVIDERS: Emergency Medicine; Internal Medicine Infectious Disease; ADMIT Family Medicine; ATTEND Family Medicine
PROC: XW033E5 Introduction of Remdesivir Anti-infective into Peripheral Vein, Percutaneous Approach, New Technology Group 5 (ICD-10-PCS; principal; 2020-07-10)
PROC: XW13325 Transfusion of Convalescent Plasma (Nonautologous) into Peripheral Vein, Percutaneous Approach, New Technology Group 5 (ICD-10-PCS; 2020-07-10)
DX: U07.1 COVID-19 (principal); N17.0 Acute kidney failure with tubular necrosis; J12.89 Other viral pneumonia; J98.11 Atelectasis; I10 Essential (primary) hypertension; E87.6 Hypokalemia; F41.9 Anxiety disorder, unspecified; I25.10 Atherosclerotic heart disease of native coronary artery without angina pectoris; Z95.5 Presence of coronary angioplasty implant and graft; Z79.82 Long term (current) use of aspirin; E87.8 Other disorders of electrolyte and fluid balance, not elsewhere classified; E11.65 Type 2 diabetes mellitus with hyperglycemia; G47.00 Insomnia, unspecified
CPT/HCPCS: 82962; 83880; 85378; 87804; 90658; 92526-GN; 92610-GN; 97110-GP; 97116-GP; 97530-GP; G0378; J0456; J0696; J1100; J1644; J1815; J2543; J3480; J3535; J7030; J7040; J7050; Q0163; Q0177; U0003